=== PATIENT | male | born 2000 | race Two or more races ===

== ENCOUNTER 2023-05-05 12:54 | Emergency (ER) | payer BC ==
[2023-05-05] MEDS ORDERED: valACYclovir 500 MG Tab PO ONE (14:56)
[2023-05-05] MEDS ORDERED: predniSONE 20 MG Tab PO ONE (14:56)
== END 2023-05-05 15:51 | disposition home or self-care (01) ==
LOC: MW.ED 12:54
DX: M62.81 Muscle weakness (generalized) (principal); G51.0 Bell's palsy; F17.210 Nicotine dependence, cigarettes, uncomplicated; Z79.899 Other long term (current) drug therapy
CPT/HCPCS: 70450; 82947; 99285; A9270; 99283